=== PATIENT | male | born 1950 | race Caucasian/White ===

== ENCOUNTER 2021-09-23 15:21 | Outpatient (CLI) | payer MEDICARE, MEDICAID | END 2021-09-23 15:22 | disposition home or self-care (01) | LOC: LABBT 15:21 | PROVIDERS: ATTEND Ophthalmology Retina Specialist | DX: Z20.822 Contact with and (suspected) exposure to COVID-19 (principal) | CPT/HCPCS: 87811 ==

== ENCOUNTER 2021-09-28 07:38 | Day surgery (SDC) | payer MEDICARE, MEDICAID ==
[2021-09-27 09:26] VITALS: BMI 24.3
[~2021-09-28 07:38] MED LIST: EPINEPHrine 0.3 MG in Ophthalmic Irrigation Solution 500 ML IRR SCH; Midazolam HCl 2 mg/2 ml Vial ONE; fentaNYL Citrate/PF 100 MCG/2 ML SYRINGE ONE
[2021-09-28] MEDS ORDERED: Cyclopentolate 1% Opth Drop 2 ML BOT ONE (08:04)
[2021-09-28] MEDS ORDERED: Phenylephrine 2.5% Ophth Soln 5 ML BOT ONE (08:04)
[2021-09-28] MEDS ORDERED: Maxitrol 0.1% Opth Oint 3.5 GM TUBE ONE (10:25)
[2021-09-28] MEDS ORDERED: PROPOFOL 200 MG/20 ML VIAL ONE (10:25)
[2021-09-28] MEDS ORDERED: Lidocaine 4% PF 5 ML AMP ONE (10:25)
[2021-09-28] MEDS ORDERED: CEFAZOLIN 1 GM VIAL ONE (10:25)
[2021-09-28] MEDS ORDERED: Lidocaine 1% PF 5 ML VIAL ONE (10:25)
[2021-09-28] MEDS ORDERED: Triamcinolone 40 MG/ML VIAL ONE (10:25)
[2021-09-28] MEDS ORDERED: Bupivacaine 0.75% 10 ML VIAL ONE (10:25)
== END 2021-09-28 11:57 | disposition home or self-care (01) ==
LOC: SDC 07:38
PROVIDERS: ATTEND Ophthalmology Retina Specialist
PROC: 08T53ZZ Resection of Left Vitreous, Percutaneous Approach (ICD-10-PCS; principal; 2021-09-28)
PROC: 08QF3ZZ Repair Left Retina, Percutaneous Approach (ICD-10-PCS; 2021-09-28)
DX: E11.3592 Type 2 diabetes mellitus with proliferative diabetic retinopathy without macular edema, left eye (principal); H43.12 Vitreous hemorrhage, left eye; Z79.4 Long term (current) use of insulin; Z79.84 Long term (current) use of oral hypoglycemic drugs; Z79.899 Other long term (current) drug therapy
CPT/HCPCS: 36416; 93005; 93010; J0171; J0690; J2250; J2704; J3301; J3490

== ENCOUNTER 2024-01-03 11:14 | Emergency (ER) | payer MEDICARE, MEDICAID ==
[2024-01-12 07:22] LABS: %Basophils 0.7 % (0.0-1.0); %Eosinophils 1.4 % (0.0-10.0); %Neutrophils 81.4 % (42.0-75.0); Hematocrit 37.8 % (42.0-52.0); Mean Corpuscular HGB CONC 34.4 g/dL (32.0-36.0); Mean Corpuscular Hemoglobin 30.5 pg (27.0-31.0); Mean Corpuscular Volume 88.7 fL (78.0-98.0); Mean Platelet Volume 10.1 fL (7.4-10.4); Platelet Count 174 10x3/uL (130-400); RBC Distribution Width 12.5 % (11.5-14.5); Red Blood Cell (RBC) Count 4.26 mill/uL (4.70-6.10)
[2024-01-12 07:23] LABS: #Basophils 0.06 10x3/uL (0.0-0.2)
== END 2024-01-03 13:24 | disposition home or self-care (01) ==
LOC: ERS 11:14
DX: F03.90 Unspecified dementia, unspecified severity, without behavioral disturbance, psychotic disturbance, mood disturbance, and anxiety (principal); I11.0 Hypertensive heart disease with heart failure; I50.9 Heart failure, unspecified; E11.9 Type 2 diabetes mellitus without complications; I25.10 Atherosclerotic heart disease of native coronary artery without angina pectoris; J44.9 Chronic obstructive pulmonary disease, unspecified; Z79.4 Long term (current) use of insulin
CPT/HCPCS: 85025; 99284